=== PATIENT | female | born 1975 | race Caucasian/White ===

== ENCOUNTER 2017-02-18 01:12 | Inpatient (IN) | payer MEDICARE ==
--- NOTE | ~2017-02-18 | EKG ---
PATIENT: BRUCE NIETO UNIT #: [id number] Ventricular Rate: 72 BPM Atrial Rate: 394 BPM QRS Duration: 86 ms Q-T Interval: 384 ms QTC Calculation(Bezet): 420 ms Calculated R [place]: 113 degrees Calculated T [place]: 121 degrees Diagnosis Line: Atrial fibrillation Diagnosis Line: Left posterior fascicular block Diagnosis Line: T wave abnormality, consider anterior ischemia or Diagnosis Line: digitalis effect Diagnosis Line: Abnormal ECG Diagnosis Line: When compared with ECG of 24-FEB-2017 08:33, Diagnosis Line: Vent. rate has decreased BY 50 BPM Diagnosis Line: Inverted T waves have replaced nonspecific T wave Diagnosis Line: abnormality in Anterior leads Diagnosis Line: Nonspecific T wave abnormality, improved in Diagnosis Line: Lateral leads Diagnosis Line: Confirmed by PRITI PATIÑO MD ([id number]) on Diagnosis Line: 02/25/2017 10:17:53 PM INTERPRETING MD: MAHOGANY
--- NOTE | ~2017-02-18 | DS ---
Unit #: [id number] #: [id number] Patient: BRUCE NIETO [id number] [facility]. [place], [place] [address] [id number] I MR#: [id number] NAME: BRUCE NIETO ROOM: 549 Age: 41 Sex: F Admission Date: 02/18/2017 : 1975 Discharge Date: 02/25/2017 Attending Physician: Richelle Olivia M.D. Primary Care Physician: Guerrero Alejo M.D. DISCHARGE SUMMARY DISCHARGE DIAGNOSES 1. Recurrent atrial fibrillation with rapid ventricular response, now with (1) . 2. Thyrotoxicosis. 3. Severe nonischemic cardiomyopathy, ejection fraction of 10% to 15%. 4. Normal coronaries per cath on February 21, 2017. 5. Hypotension. 6. Valvular heart disease. 7. Lntkrzzu-jw-grikor tricuspid regurgitation/mitral regurgitation. 8. Biventricular congestive heart failure. 9. Patient has a LifeVest. CONSULT Consult for this patient includes Dr. Amador. DIAGNOSTIC STUDIES LABORATORY: Most recent laboratory results: Sodium 135, potassium 4.6, chloride 102, CO2 of 25, BUN 13, creatinine 0.8, glucose 105. Telemetry monitoring shows atrial fibrillation with rates in the 70s to 80s. HOSPITAL COURSE The patient is a 41-year-old female, who is new to [facility]. She has a past medical history of hypertension. She denies any previous stress test or cardiac catheterization, and she denies any heart issues. She does note that she has an overactive thyroid but has not been taking any of her medications for that. The patient's urine toxicology upon admission was positive for amphetamines and benzodiazepines. Patient presented to the hospital with complaints of shortness of breath and pain in her back which she had for about a week. The shortness of breath was with rest and with activity. She had some chills but no fever. She admits to some headache but nothing severe. With her episodes of shortness of breath, she did note that she did have some heaviness go across her chest that radiated to her neck and would last for a few minutes. There were no alleviating factors. She denies any chest pain with exertion. All of these symptoms have been new over the past week. She denies any reports of dizziness but did endorse occasional palpitations. There are no reports of syncope. In the emergency department, her temperature was 97.6, pulse 64, respirations 16, and blood pressure is 141/113. She was oxygenating 100% on room air. Initial labs revealed a creatinine of 1, BUN 22. Again, her urinalysis was positive for leukocytes and protein. Her urine drug screen was positive for benzodiazepines and amphetamines. She was found to have Unit #: [id number] #: [id number] Patient: BRUCE NIETO an elevated D-dimer and did have a CT of her chest. Imaging revealed moderate bilateral effusions with cardiomegaly and a linear opacity in the lingula with questionable atelectasis or infiltrate the left lower lobe. Her EKG revealed atrial fibrillation with rapid ventricular rate. Initially, patient was started on aspirin, IV metoprolol, and a Cardizem drip. The patient was admitted for further workup. The patient was on a Cardizem drip. She continued to have rapid heart rate despite beta blockers. She was unable to tolerate beta blockers at a higher dose. She was initially started on sotalol 40 mg p.o. b.i.d. Ultimately, patient's sotalol had to be increased to 80 mg b.i.d. and she was placed on digoxin 0.25 mg p.o. daily. She is on Eliquis 5 mg b.i.d. and Entresto. Patient has shown improvement. She now has good rate control. Dr. Chao has seen the patient and agrees she is stable for discharge. Dr. Amador did follow the patient for her elevated thyroid and she was started on Tapazole. The patient is currently stable for discharge. I have discussed this with Dr. Chao and he is agreeable. DISCHARGE FOLLOWUP INSTRUCTIONS 1. The patient will be discharged home. 2. The patient will follow up with primary care provider in one week. 3. The patient to follow up with Dr. Amador in two weeks. 4. The patient is to follow up with Dr. Olivia on Sunday, April 13, at 10:30 a.m. 5. Healthy heart diet. 6. Activity as tolerated. 7. Patient to seek medical attention or return to the ER if signs or symptoms worsen. DISCHARGE MEDICATIONS 1. Entresto 24/26 mg one tab p.o. b.i.d. Samples were given. 2. Eliquis 5 mg p.o. b.i.d. Samples were given. 3. Tapazole 10 mg p.o. b.i.d. 4. Digoxin 0.5 mg p.o. at bedtime. 5. Betapace 80 mg p.o. b.i.d. 6. Lasix 20 mg p.o. b.i.d. 7. vitamin one tab p.o. daily. 8. Aspirin 81 mg p.o. daily. 9. Darvocet 100-650 one tab p.o. every six hours p.r.n. pain. 10. Amoxicillin 500 mg p.o. daily for six more days for a total of 10 days of treatment. 11. Potassium 20 mEq p.o. daily. Dictated by... Heavenly Arevalo A.P.R.N. for Azeem Chao M.D. AM/yudith TD: 02/25/2017 13:19 JOB #: [id number] Unit #: [id number] #: [id number] Patient: BRUCE NIETO DISCHARGE SUMMARY Page 1 of 1 X Heavenly Arevalo DOUGH BRAKER X DISCHARGE SUMMARY
--- NOTE | ~2017-02-18 | EKG ---
PATIENT: BRUCE NIETO UNIT #: [id number] Ventricular Rate: 122 BPM Atrial Rate: 131 BPM QRS Duration: 82 ms Q-T Interval: 334 ms QTC Calculation(Bezet): 475 ms Calculated R [place]: 107 degrees Calculated T [place]: -52 degrees Diagnosis Line: Atrial fibrillation with rapid ventricular Diagnosis Line: response Diagnosis Line: Rightward axis Diagnosis Line: Nonspecific T wave abnormality , probably Diagnosis Line: digitalis effect Diagnosis Line: Abnormal ECG Diagnosis Line: When compared with ECG of 21-FEB-2017 05:38, Diagnosis Line: (unconfirmed) Diagnosis Line: Nonspecific T wave abnormality, worse in Diagnosis Line: Anterolateral leads Diagnosis Line: Confirmed by PRITI PATIÑO MD ([id number]) on Diagnosis Line: 02/24/2017 2:11:58 PM INTERPRETING MD: MAHOGANY
--- NOTE | ~2017-02-18 | CT16 ---
[facility] A Service of [facility] RADIOLOGY TEXT RESULTS PATIENT: BRUCE NIETO LOCATION: C5B 549-01 : [birth year] UNIT #: [id number] AGE: [address]: Richelle Olivia MD SEX: F ORDER DR: [id number] [facility] [address] [place], [place] [address] [id number] E MR#: [id number] #: [id number] NAME: BRUCE NIETO : 1975 SEX: F STUDY DATE/TIME: 02/18/2017 5:23 UNIT: [facility] ROOM: STUDY DESCRIPTION: CT Angio Chest for PE Attending Physician: Jose F Lucero M.D. Ordering Physician: Dajuan Mosley M.D. Primary Care Physician: Guerrero Alejo M.D. MEDICAL IMAGING REPORT This report is preliminary unless electronic signature is present EXAM CTA chest PE protocol INDICATION Shortness of air and chest pain for the past week with elevated D-dimer level. PROCEDURE Contrast-enhanced CTA of the chest attention on opacification of the pulmonary arteries. Coronal, 3D MIP, sagittal reformatted images were reconstructed and submitted. This CT exam was performed with one or more of the following radiation dose reduction techniques: automatic exposure control, adjustment of mA and/or kV according to patient size, and iterative reconstruction. COMPARISON None. FINDINGS No evidence for pulmonary embolus. Thoracic aorta is not well opacified. Cardiomegaly. Moderate-sized bilateral pleural effusions. There is linear opacity in the lingula probably representing atelectasis. No acute findings in the included upper abdomen. No aggressive-appearing bone lesion. IMPRESSION 1. Moderate-sized bilateral pleural effusions and cardiomegaly. No evidence for pulmonary embolus. 2. Linear opacity in the lingula and anterior left lower lobe has the appearance of atelectasis. Infiltrate is not completely excluded. Dictated by... [facility] A Service [facility] RADIOLOGY TEXT RESULTS PATIENT: BRUCE NIETO LOCATION: C5B 549 : [birth year] UNIT #: [id number] AGE: [address]: Richelle Olivia MD SEX: F ORDER DR: Kenn Cartagena M.D. THIS IS AN ELECTRONICALLY VERIFIED REPORT Kenn Cartagena M.D. at 02/18/2017 10:04 PM SEAND/mayelin TD: 02/18/2017 07:52 JOB #: [id number] MEDICAL IMAGING REPORT Page 1 of 1 COPY
--- NOTE | ~2017-02-18 | EKG ---
PATIENT: BRUCE NIETO UNIT #: [id number] Ventricular Rate: 122 BPM Atrial Rate: 122 BPM QRS Duration: 90 ms Q-T Interval: 348 ms QTC Calculation(Bezet): 495 ms Calculated R [place]: 103 degrees Calculated T [place]: -41 degrees Diagnosis Line: Atrial fibrillation with rapid ventricular Diagnosis Line: response with PVC's Diagnosis Line: Rightward axis Diagnosis Line: Nonspecific T wave abnormality , probably Diagnosis Line: digitalis effect Diagnosis Line: Abnormal ECG Diagnosis Line: When compared with ECG of 18-FEB-2017 03:40, Diagnosis Line: (unconfirmed) Diagnosis Line: Nonspecific T wave abnormality, worse in Anterior Diagnosis Line: leads Diagnosis Line: Confirmed by PRITI PATIÑO MD ([id number]) on Diagnosis Line: 02/20/2017 5:22:30 PM INTERPRETING MD: MAHOGANY
--- NOTE | ~2017-02-18 | HP ---
Unit #: [id number] #: [id number] Patient: BRUCE NIETO [id number] [facility]. [address] [place], [place] [address] [id number] I MR#: [id number] NAME: BRUCE NIETO ROOM: 64685 Age: 41 Sex: F Admission Date: 02/18/2017 : 1975 Attending Physician: Richelle Olivia M.D. Primary Care Physician: Guerrero Alejo M.D. HISTORY AND PHYSICAL HISTORY OF PRESENT ILLNESS This is a 41-year-old white female, new to our group, with a past medical history of hypertension, not on medications for at least the last year. The patient denies hyperlipidemia, diabetes mellitus, myocardial infarction or cerebrovascular accident. She denies previous stress test or cardiac catheterizations. She has had no heart issues in the past. She did have a hyperactive thyroid but is also not taking medication for that. She does admit to active tobacco abuse. She initially denied drug abuse; however, urine toxicology was positive for amphetamines and benzodiazepines. Upon questioning, she did admit that she does smoke methamphetamine, but this is occasionally and not on a daily basis. She admits to occasional alcohol but no heavy use. There are no reports of IV drug use. She presented to the hospital with complaints of shortness of breath and pain in her back for the past week or so. The shortness of breath is with rest and activity. She has had some chills but no fever. She admits to some headaches but nothing severe. With episodes of shortness of breath, she does have heaviness that goes across her chest. It radiates into her neck. It lasts for minutes. There are no alleviating factors. She denies chest pain with exertion. All of these symptoms are new over the past week. There are no reports of dizziness. She admits to occasional palpitations. There are no reports of syncope. She has been short of breath at night and waking up due to difficulties breathing. She has had some nausea but no vomiting. She reports pain in her mid to lower back. She also states that she has had swelling in her feet recently worse. In the emergency department her temperature was 97.6, pulse 64, respirations 16 and blood pressure 141/113 with an O2 saturation of 100% on room air. Initial labs revealed a creatinine of 1 with a BUN of 22. Sodium was mildly low at 133. Albumin was low at 3.2. BNP was high at 763. TSH was low at 0.08. D-dimer was elevated at 754. Initial cardiac enzymes were negative. Urinalysis was positive for 2+ leukocytes and 2+ protein. Urine culture was obtained and is pending. CTA of the chest was completed due to elevated D-dimer. Imaging revealed moderate bilateral effusions with cardiomegaly and a linear opacity in the lingula with questionable atelectasis or infiltrate in the left lower lobe. EKG revealed atrial fibrillation with a rapid ventricular response of unknown duration. Patient was started on aspirin, IV Metoprolol and a diltiazem bolus and drip. She was given normal saline and a dose of Phenergan. She is currently resting comfortably but is ill appearing. PAST MEDICAL HISTORY Unit #: [id number] #: [id number] Patient: BRUCE NIETO 1. Hypertension, not currently on medications. 2. Denies hyperlipidemia and diabetes mellitus, myocardial infarction or cerebrovascular accident. 3. No previous stress test or cardiac catheterization. 4. Hyperthyroidism, not on medications. 5. Reported DVT in right leg greater than 10 years ago. Details unavailable. 6. Occasional methamphetamine use. 7. Occasional alcohol use. 8. Active tobacco. PAST SURGICAL HISTORY 1. Tubal . 2. Cholecystectomy. 3. Right leg surgery with history of titanium thi. HOME MEDICATIONS 1. vitamin. 2. Aspirin. 3. Darvocet. ALLERGIES Keflex. SOCIAL HISTORY The patient lives in a private residence. She is an active smoker and smokes 1 pack of cigarettes over 3 days. She admits to occasional alcohol but no heavy use. She initially denied drug use but then admitted to methamphetamine use. She smokes methamphetamine. There are no reports of other illicit drugs or IV drug abuse. FAMILY HISTORY Noncontributory. REVIEW OF SYSTEMS A 10-point review of systems is negative except for details noted above in HPI. PHYSICAL EXAMINATION VITAL SIGNS: Temperature 97.3, pulse 72, blood pressure 107/85. CONSTITUTIONAL: This is a 41-year-old white female who is ill appearing. SKIN: Warm and dry. NECK: Supple. Positive jugular vein distention. No hepatojugular reflux. Normal carotid upstrokes. No carotid bruits auscultated. HEART: S1, S2. Irregularly irregular. No murmurs, rubs or gallops. LUNGS: Bilateral breath sounds have faint rales in the bases. Respirations are even and nonlabored. No rhonchi or wheezes. ABDOMEN: Soft, nontender, nondistended. Positive bowel sounds auscultated x4 quadrants. No ascites noted. EXTREMITIES: Bilateral lower extremities have 3+ pitting edema. DP and PT pulses are 2+. Capillary refill less than 3 seconds. DIAGNOSTIC STUDIES LABORATORY: White blood cell count 12.3, hemoglobin 13.5, hematocrit 42.5, platelets 150. Sodium 133, potassium 4.2, chloride 107, CO2 19, BUN 22, creatinine 1, glucose 100, albumin 3.2, AST 18, ALT 17, alkaline phosphatase 57. BNP is 763. TSH 0.08. D-dimer 754. Troponin 0.05. Urinalysis with 2+ leukocytes and 2+ protein. Urine culture pending. Urine Unit #: [id number] #: [id number] Patient: BRUCE NIETO toxicology positive for amphetamines and benzodiazepines. IMAGING: CT of the chest reveals moderate bilateral pleural effusions. Cardiomegaly. No pulmonary embolus. Linear opacity in the lingula/anterior chest. Left lower lobe atelectasis versus infiltrate. CARDIOVASCULAR: Electrocardiogram reveals atrial flutter with a ventricular rate of 157 beats per minute. Nonspecific ST-T wave changes noted. Poor R wave progression. QTc 462 msec. IMPRESSION 1. Atrial fibrillation with rapid ventricular response, age undetermined. 2. Chest pain, rule out NH. 3. Noncompliance with medicines. 4. Hypertension, uncontrolled. 5. Acute congestive heart failure with two-D echocardiogram pending. 6. Bilateral pleural effusions. 7. Hyperthyroidism. 8. Elevated D-dimer with no pulmonary embolus on CTA of the chest. 9. Possible urinary tract infection. 10. Atelectasis in the left lower lobe. 11. Leukocytosis. 12. Methamphetamine and benzodiazepine use. 13. Occasional alcohol use. 14. Active tobacco abuse. PLAN 1. The patient presented to the hospital with complaints of shortness of breath and back pain. She was admitted for atrial fibrillation with a rapid ventricular response. 2. On exam, there is evidence of congestive heart failure and volume overload. 3. The patient has been started on strict intake and output, fluid restriction and a 2-gram sodium diet. 4. She has been started on IV Lasix and daily weights. 5. Atrial fibrillation continues but with more controlled rates. Diltiazem has been stopped, and she is on a beta-lynn with parameters. 6. TSH level is low. A free T3 and T4 have been ordered, and Dr. Amador has been consulted. 7. Fasting lipid profile, CBC, BMP, serial cardiac enzymes and EKG have been ordered. 8. Patient is on full dose Lovenox for anticoagulation. [id number] score is at least 2 due to hypertension and female gender. Will need to discuss long-term anticoagulation prior to discharge. 9. Two-D echocardiogram has been ordered to assess LV function and valves. 10. Once volume status is stable, the patient will need an ischemic workup. 11. She has been advised to refrain from tobacco and drug abuse. 12. Blood and urine cultures have been obtained due to leukocytosis. Dictated by Jennifer Shay APRN for Richelle Olivia M.D. Unit #: [id number] #: [id number] Patient: BRUCE NIETO JIMMIE/mack TD: 02/18/2017 15:38 JOB #: [id number] HISTORY AND PHYSICAL Page 1 of 1 X X HISTORY AND PHYSICAL
--- NOTE | ~2017-02-18 | CR72 ---
[facility] A Service of [facility] RADIOLOGY TEXT RESULTS PATIENT: BRUCE NIETO LOCATION: [address] [address] : 75 UNIT #: [id number] AGE: [address]: Richelle Olivia MD SEX: F ORDER DR: [id number] [facility] [address] [facility]. [place], [place] [address] [id number] E MR#: [id number] Acc #: [id number] NAME: BRUCE NIETO : 1975 SEX: F STUDY DATE/TIME: 02/18/2017 4:01 UNIT: [facility] ROOM: STUDY DESCRIPTION: CR Chest Single View Portable Attending Physician: Dajuan Mosley M.D. Ordering Physician: Dajuan Mosley M.D. Primary Care Physician: Guerrero Alejo M.D. MEDICAL IMAGING REPORT This report is preliminary unless electronic signature is present EXAM Portable chest INDICATIONS Shortness of air. Chest pain today. PROCEDURE Frontal view chest. FINDINGS Cardiomegaly moderate central pulmonary vascular congestion. Ill-defined opacity at the left lung base. No pneumothorax. IMPRESSION 1. Cardiomegaly and central vascular congestion. 2. Ill-defined opacity left lung base could represent atelectasis or infiltrate Dictated by... Kenn Cartagena M.D. THIS IS AN ELECTRONICALLY VERIFIED REPORT Kenn Cartagena M.D. at 02/18/2017 10:05 PM VLADISLAV/sheree TD: 02/18/2017 04:35 JOB #: [id number] MEDICAL IMAGING REPORT Page 1 of 1 COPY
--- NOTE | ~2017-02-18 | CO ---
Unit #: [id number] #: [id number] Patient: BRUCE NIETO [id number] [address] [place], [place] [address] [id number] I MR#: [id number] NAME: BRUCE NIETO ROOM: 549 Age: 41 Sex: F Admission Date: 02/18/2017 : 1975 Attending Physician: Richelle Olivia M.D. Primary Care Physician: Guerrero Alejo M.D. CONSULTATION REPORT REASON FOR CONSULTATION Abnormal thyroid function test. HISTORY OF PRESENT ILLNESS This is a 41-year-old female, who has a history of hyperthyroidism, was seen some endocrinologists more than two years ago, reports she was on thyroid medicine, but she has not been taking any for two years. She has a history is of hypertension also, not taking any medicines. She presented to the emergency room for not feeling well and had some increasing shortness of air and palpitations over the last few days. On arrival in the emergency room, she was found to be in atrial fibrillation with rapid ventricular rate. She was treated with the IV Cardizem and then started on Cardizem drip. On her labs, she was found to have the thyroid levels, which was consistent with the hyperthyroidism. I have been asked to see the patient for further management. PAST MEDICAL HISTORY See HPI. SOCIAL HISTORY She does have a history of methamphetamine use and alcohol. Smokes, last time she smoked methamphetamine two days ago. Declines any IV drug use. FAMILY HISTORY Noncontributory. PAST SURGICAL HISTORY Tubal ligation and cholecystectomy. ALLERGIES Cephalexin and Keflex. PHYSICAL EXAMINATION VITAL SIGNS: Temperature 97.3, pulse 92, respirations 14, and blood pressure 113/87. HEENT: EOMI. Pupils equally reactive to light. NECK: Supple. No thyromegaly noted> CHEST: Good air entry. CVS: Atrial fibrillation, irregular rhythm. NECK: She does have a diffuse thyromegaly. No bruit noted. No palpable lymph nodes. ABDOMEN: Soft and nontender. Bowel sounds positive. No guarding or rigidity noted. EXTREMITIES: Does have edema. Unit #: [id number] #: [id number] Patient: BRUCE NIETO NEUROLOGIC: Nonfocal. Moving all extremities. LABORATORY DATA TSH 0.08 and free T4 is 2.0. ASSESSMENT 1. 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 2. Atrial fibrillation with rapid ventricular response. 3. Congestive heart failure with bilateral pleural effusions. PLAN Continue beta blockers, carvedilol 12.5 mg p.o. b.i.d. Continue IV diuresis. Start the patient on the methimazole 10 mg with the first dose just now. PLAN I discussed with the patient the need for compliance. Thanks again for consultation. Dictated by... Lenora Day/leah TD: 02/19/2017 00:37 JOB #: [id number] CONSULTATION REPORT Page 1 of 1 X Kristine Amador MD X CONSULTATION REPORT
--- NOTE | ~2017-02-18 | EKG ---
PATIENT: BRUCE NIETO UNIT #: [id number] Ventricular Rate: 121 BPM Atrial Rate: 120 BPM QRS Duration: 88 ms Q-T Interval: 340 ms QTC Calculation(Bezet): 482 ms Calculated R [place]: 111 degrees Calculated T [place]: 5 degrees Diagnosis Line: Atrial fibrillation with rapid ventricular Diagnosis Line: response Diagnosis Line: Left posterior fascicular block Diagnosis Line: Abnormal ECG Diagnosis Line: No previous ECGs available Diagnosis Line: Confirmed by PRITI PATIÑO MD ([id number]) on Diagnosis Line: 02/24/2017 9:45:42 AM INTERPRETING MD: MAHOGANY
--- NOTE | ~2017-02-18 | EKG ---
PATIENT: BRUCE NIETO UNIT #: [id number] Ventricular Rate: 155 BPM Atrial Rate: 182 BPM QRS Duration: 82 ms Q-T Interval: 250 ms QTC Calculation(Bezet): 401 ms Calculated R [place]: 110 degrees Calculated T [place]: -39 degrees Diagnosis Line: Atrial fibrillation with rapid ventricular Diagnosis Line: response with premature ventricular or aberrantly Diagnosis Line: conducted complexes Diagnosis Line: Right axis deviation Diagnosis Line: Nonspecific T wave abnormality Diagnosis Line: Abnormal ECG Diagnosis Line: When compared with ECG of 18-FEB-2017 03:39, Diagnosis Line: (unconfirmed) Diagnosis Line: No significant change was found Diagnosis Line: Confirmed by SYLVIA RODRIGUEZ MD ([id number]) on Diagnosis Line: 02/19/2017 9:38:45 PM INTERPRETING MD: MICHAEL PAULINO
[~2017-02-18 01:12] MED LIST: ASPIRIN PO; DARVOCET-N 1001 TAB PO; PRENATAL VITAMI1 TA3 PO
[2017-02-18 04:20] LABS: POC - TROPONIN <0.05 ng/mL (<=0.05)
[2017-02-18 04:28] LABS: BASOPHIL# 0.1 X10e3 (0-0.3); BASOPHIL% 0.7 % (0-2.5); EOSINOPHIL# 0.2 X10e3 (0-0.7); EOSINOPHIL% 1.8 % (0.0-7.0); HEMATOCRIT 42.5 % (35.0-45.0); HEMOGLOBIN 13.5 gm/dL (12.0-16.0); LYMPHOCYTE% 24.6 % (17.0-45.0); MEAN CORPUSCULAR HEMOGLOBIN 26.1 PG (28-34); MEAN CORPUSCULAR HGB CONC 31.8 g/dL (30-36); MEAN PLATELET VOLUME 11.3 FL (6.5-11.5); MONOCYTE# 1.3 X10e3 (0-1.0); MONOCYTE% 10.3 % (3.0-12.0); NEUTROPHIL# 7.7 X10e3 (1.5-7.1); NEUTROPHIL% 62.6 % (40-75); PLATELET COUNT 150 X10e3 (140-420); RED BLOOD COUNT 5.18 X10e (3.90-5.30); RED CELL DISTRIBUTION WIDTH 14.2 % (11.0-15.5); WHITE BLOOD COUNT 12.3 X10e3 (4.0-10.5)
[2017-02-18 04:30] LABS: DIFF IND NO
[2017-02-18 04:40] LABS: ALBUMIN SERUM 3.2 g/dL (3.5-5.0); BILIRUBIN, DIRECT 0.2 mg/dL (0.0-0.2); BILIRUBIN,INDIRECT 0.1 mg/dL (0.0-0.9); BILIRUBIN,TOTAL 0.3 mg/dL (0.2-2.0); CALCIUM SERUM 8.3 mg/dL (8.4-10.2); POTASSIUM 4.2 mmol/L (3.5-5.1); PROTEIN TOTAL SERUM 6.2 g/dL (6.0-8.3)
[2017-02-18 08:10] LABS: URINE SOURCE CLEAN CATCH
[2017-02-18 08:14] LABS: URINE APPEARANCE CLEAR; URINE BILIRUBIN NEG (NEG); URINE BLOOD NEG (NEG); URINE COLOR YELLOW; URINE GLUCOSE NEG (NEG); URINE KETONE NEG (NEG); URINE LEUKOCYTE ESTERASE 2+ (NEG); URINE NITRATE NEG (NEG); URINE PROTEIN 2+ (NEG)
[2017-02-18 08:17] LABS: CULTURE INDICATED? YES; URINE BACTERIA AUWI NEG (NEGATIVE); URINE SQUAMOUS EPITHELIAL CELL OCC /[HPF]; UWBCS1 AUWI 50-100 (0-5)
[2017-02-18 08:39] LABS: AMPHETAMINE POS (NEG); BARBITURATES NEG (NEG); BENZODIAZEPINES POS (NEG); COCAINE NEG (NEG); MARIJUANA NEG (NEG); OPIATES NEG (NEG); TRICYCLIC ANTIDEPRESSANTS NEG (NEG); U METHADONE NEG (NEG)
[2017-02-18 09:37] LABS: MAGNESIUM 1.7 mg/dL (1.6-3.0)
[2017-02-18 09:55] LABS: %MB 7.8 % (0.0-4.0); MB 4.9 ng/ml
[2017-02-18 11:17] LABS: CHOLESTEROL 90 mg/dL (0-200); HDL CHOLESTEROL 31 mg/dL (35-95); LDL CHOLESTEROL 49 mg/dL (-130); LDL/HDL RATIO 2 RATIO (0-4); TRIGLYCERIDES 48 mg/dL (10-160)
[2017-02-18 12:03] LABS: FREE T3 3.6 pg/mL (2.5-3.9)
[2017-02-18 14:12] LABS: CK TOTAL 49 IU/L (26-140)
[2017-02-18 21:24] LABS: CK TOTAL 45 IU/L (26-140)
[2017-02-19 06:05] LABS: BASOPHIL# 0.1 X10e3 (0-0.3); BASOPHIL% 1.1 % (0-2.5); EOSINOPHIL# 0.3 X10e3 (0-0.7); HEMOGLOBIN 13.1 gm/dL (12.0-16.0); LYMPHOCYTE# 2.6 X10e3 (1.0-3.5); LYMPHOCYTE% 30.9 % (17.0-45.0); MEAN CELL VOLUME 82.4 FL (83-96); MEAN CORPUSCULAR HEMOGLOBIN 26.4 PG (28-34); MEAN PLATELET VOLUME 10.8 FL (6.5-11.5); MONOCYTE% 11.8 % (3.0-12.0); NEUTROPHIL# 4.6 X10e3 (1.5-7.1); NEUTROPHIL% 53.2 % (40-75); PLATELET COUNT 139 X10e3 (140-420); RED BLOOD COUNT 4.98 X10e (3.90-5.30); WHITE BLOOD COUNT 8.6 X10e3 (4.0-10.5)
[2017-02-19 06:18] LABS: DIFF IND NO
[2017-02-19 06:49] LABS: BUN/CREATININE RATIO 17.27; CALCIUM SERUM 8.2 mg/dL (8.4-10.2); CREATININE SERUM 1.1 mg/dL (0.6-1.4); GLOM FILT RATE Estimated 62.3 mL/min (>60); MAGNESIUM 1.6 mg/dL (1.6-3.0); POTASSIUM 4.1 mmol/L (3.5-5.1)
[2017-02-20 06:28] LABS: BUN/CREATININE RATIO 16.36; CALCIUM SERUM 7.9 mg/dL (8.4-10.2); CREATININE SERUM 1.1 mg/dL (0.6-1.4); GLOM FILT RATE Estimated 62.3 mL/min (>60); POTASSIUM 3.4 mmol/L (3.5-5.1)
[2017-02-21 05:27] LABS: HEMATOCRIT 43.2 % (35.0-45.0); HEMOGLOBIN 13.7 gm/dL (12.0-16.0); MEAN CELL VOLUME 82.2 FL (83-96); MEAN CORPUSCULAR HEMOGLOBIN 26.1 PG (28-34); MEAN CORPUSCULAR HGB CONC 31.8 g/dL (30-36); MEAN PLATELET VOLUME 10.4 FL (6.5-11.5); RED BLOOD COUNT 5.26 X10e (3.90-5.30); RED CELL DISTRIBUTION WIDTH 14.2 % (11.0-15.5); WHITE BLOOD COUNT 9.6 X10e3 (4.0-10.5)
[2017-02-21 05:51] LABS: PARTIAL THROMBOPLASTIN TIME 31.1 SECONDS (23.5-31.3); PROTHROMBIN TIME (PATIENT) 10.9 SECONDS (9.6-11.5)
[2017-02-21 06:08] LABS: BUN/CREATININE RATIO 16.66; CALCIUM SERUM 8.2 mg/dL (8.4-10.2); CREATININE SERUM 0.9 mg/dL (0.6-1.4); GLOM FILT RATE Estimated 79.5 mL/min (>60); MAGNESIUM 1.7 mg/dL (1.6-3.0); POTASSIUM 3.8 mmol/L (3.5-5.1)
[2017-02-22 04:39] LABS: BUN/CREATININE RATIO 22.85; CALCIUM SERUM 8.4 mg/dL (8.4-10.2); CREATININE SERUM 0.7 mg/dL (0.6-1.4); GLOM FILT RATE Estimated 107.6 mL/min (>60); MAGNESIUM 1.8 mg/dL (1.6-3.0); POTASSIUM 4.6 mmol/L (3.5-5.1)
[2017-02-23 06:54] LABS: HEMATOCRIT 48.4 % (35.0-45.0); HEMOGLOBIN 15.2 gm/dL (12.0-16.0); MEAN CELL VOLUME 83.5 FL (83-96); MEAN CORPUSCULAR HEMOGLOBIN 26.1 PG (28-34); MEAN CORPUSCULAR HGB CONC 31.3 g/dL (30-36); MEAN PLATELET VOLUME 10.7 FL (6.5-11.5); RED BLOOD COUNT 5.8 X10e (3.90-5.30); RED CELL DISTRIBUTION WIDTH 13.8 % (11.0-15.5)
[2017-02-23 07:24] LABS: MAGNESIUM 1.8 mg/dL (1.6-3.0); POTASSIUM 4.5 mmol/L (3.5-5.1)
[2017-02-24 07:38] LABS: BUN/CREATININE RATIO 12.5; CALCIUM SERUM 8.7 mg/dL (8.4-10.2); CREATININE SERUM 0.8 mg/dL (0.6-1.4); GLOM FILT RATE Estimated 91.7 mL/min (>60); POTASSIUM 4.7 mmol/L (3.5-5.1)
[2017-02-25 06:15] LABS: BUN/CREATININE RATIO 16.25; CALCIUM SERUM 8.9 mg/dL (8.4-10.2); CREATININE SERUM 0.8 mg/dL (0.6-1.4); GLOM FILT RATE Estimated 91.7 mL/min (>60); POTASSIUM 4.6 mmol/L (3.5-5.1)
[2017-02-25] MEDS ORDERED: ELIQUIS5 MG PO (13:03)
[2017-02-25] MEDS ORDERED: ENTRESTO 24 MG1 EACH PO (13:03)
[2017-02-25] MEDS ORDERED: AMOXICILLIN500 M1 PO (13:04)
[2017-02-25] MEDS ORDERED: K-DUR20 ME1 PO (13:04)
[2017-02-25] MEDS ORDERED: LASIX20 MG PO (13:05)
[2017-02-25] MEDS ORDERED: BETAPACE80 MG PO (13:05)
[2017-02-25] MEDS ORDERED: TAPAZOLE10 MG PO (13:07)
[2017-02-25] MEDS ORDERED: DIGOX0.25 MG PO (13:07)
== END 2017-02-25 14:21 | disposition home or self-care (01) | DRG 286 ==
LOC: CED 01:12 → CEDOF 06:50 → C5B 06:50 → CED 09:41 → CEDOF 09:41 → C5B 21:00 → CEDOF 21:00 → C5B 02-25 14:21
PROVIDERS: Emergency Medicine; Internal Medicine Cardiovascular Disease; Nurse Practitioner
PROC: B32TYZZ Computerized Tomography (CT Scan) of Left Pulmonary Artery using Other Contrast (ICD-10-PCS; principal; 2017-02-18)
PROC: 4A023N7 Measurement of Cardiac Sampling and Pressure, Left Heart, Percutaneous Approach (ICD-10-PCS; 2017-02-18)
PROC: B32SYZZ Computerized Tomography (CT Scan) of Right Pulmonary Artery using Other Contrast (ICD-10-PCS; 2017-02-18)
PROC: B24BYZZ Ultrasonography of Heart with Aorta using Other Contrast (ICD-10-PCS; 2017-02-18)
PROC: B213YZZ Fluoroscopy of Multiple Coronary Artery Bypass Grafts using Other Contrast (ICD-10-PCS; 2017-02-21)
PROC: B211YZZ Fluoroscopy of Multiple Coronary Arteries using Other Contrast (ICD-10-PCS; 2017-02-21)
PROC: B215YZZ Fluoroscopy of Left Heart using Other Contrast (ICD-10-PCS; 2017-02-21)
DX: I48.91 Unspecified atrial fibrillation (principal); I50.43 Acute on chronic combined systolic (congestive) and diastolic (congestive) heart failure; J90 Pleural effusion, not elsewhere classified; I42.9 Cardiomyopathy, unspecified; I95.9 Hypotension, unspecified; I08.1 Rheumatic disorders of both mitral and tricuspid valves; I11.0 Hypertensive heart disease with heart failure; N39.0 Urinary tract infection, site not specified; J98.11 Atelectasis; F17.210 Nicotine dependence, cigarettes, uncomplicated; Z79.82 Long term (current) use of aspirin; Z90.49 Acquired absence of other specified parts of digestive tract; Z91.14 Patient's other noncompliance with medication regimen; D72.829 Elevated white blood cell count, unspecified; Z72.89 Other problems related to lifestyle; E05.00 Thyrotoxicosis with diffuse goiter without thyrotoxic crisis or storm; F15.10 Other stimulant abuse, uncomplicated; F19.10 Other psychoactive substance abuse, uncomplicated; K08.89 Other specified disorders of teeth and supporting structures; Z95.1 Presence of aortocoronary bypass graft
CPT/HCPCS: 36415; 71010; 71275; 80048; 80061; 80076; 80307; 81003; 82550; 82553; 82810; 83735; 83880; 84439; 84443; 84481; 84484; 85025; 85027; 85379; 85610; 85730; 87040; 87086; 93005; 93306; 94760; 96361; 96365; 96375; 96376; 99285; C1760; C1769; C1887; J1160; J1200; J1644; J1650; J1940; J2250; J2405; J2550; J3010; J3475; J3490; Q9967